=== PATIENT | male | born 1940 | race African-American/Black ===

== ENCOUNTER 2018-02-17 23:25 | Emergency (ER) | payer MEDICARE, MEDICAID ==
[~2018-02-17] VITALS: Ht 180.3 cm; Wt 77.0 kg
[2018-02-18 00:14] VITALS: BP 140/76
== END 2018-02-18 00:20 | disposition home or self-care (01) ==
LOC: ER 23:25
DX: C34.90 Malignant neoplasm of unspecified part of unspecified bronchus or lung (principal); I10 Essential (primary) hypertension; R04.2 Hemoptysis; Z66 Do not resuscitate; Z87.891 Personal history of nicotine dependence; Z88.6 Allergy status to analgesic agent
CPT/HCPCS: 71045; 93005; 99284